=== PATIENT | female | born 1965 | race Caucasian/White ===

== ENCOUNTER 2017-12-07 13:35 | Emergency (ER) | payer BC, MEDICAID ==
[~2017-12-07] VITALS: Ht 162.6 cm; Wt 68.0 kg
[~2017-12-07 13:35] MED LIST: GABA-534 PO; MELA5TAB PO; [UNRECOGNIZED DRUG - REMARK]
[2017-12-07 14:39] LABS: *BILIRUBIN,URIN NEGATIVE (NEGATIVE); *BLOOD, URINE NEGATIVE (NEGATIVE); *COLOR,URINE YELLOW (YELLOW); *KETONES,URINE NEGATIVE (NEGATIVE); *PROTEIN,URINE NEGATIVE (NEGATIVE); *UROBILINOGEN,URINE 0.2 E.U./dl (NORMAL); LEUKOCYTE ESTERASE ,URINE NEGATIVE (NEGATIVE); NITRITE, URINE NEGATIVE (NEGATIVE); UGLUCOSE NEGATIVE (NEGATIVE)
[2017-12-07 14:40] LABS: *URINE HCG, QUAL NEGATIVE (NEGATIVE)
[2017-12-07 14:49] LABS: BASOPHILS % (AUTO) 0.2 % (0.0-2.0); EOSINOPHILS % (AUTO) 0.4 % (0.0-7.0); HEMATOCRIT 40.3 % (31.2-41.9); HEMOGLOBIN 13.7 g/dL (10.9-14.3); LYMPHOCYTES # (AUTO) 2.5 K/uL (20.0-40.0); LYMPHOCYTES % (AUTO) 32.1 % (20.5-51.5); MEAN CORPUSCULAR HEMOGLOBIN 32.2 uug (24.7-32.8); MEAN CORPUSCULAR HGB CONC 34 g/dL (32.3-35.6); MEAN CORPUSCULAR VOLUME 95.1 fL (75.5-95.3); MONOCYTES # (AUTO) 0.4 K/uL (2.0-10.0); MONOCYTES % (AUTO) 5.6 % (0.0-11.0); NEUTROPHILS # (AUTO) 4.7 K/uL (1.8-8.9); NEUTROPHILS % (AUTO) 61.7 % (38.5-71.5); PLATELET COUNT (AUTO) 192 K/uL (179-408); RED BLOOD CELL COUNT(AUTO) 4.24 MIL/uL (3.63-4.92); WHITE BLOOD COUNT (AUTO) 7.7 K/uL (3.8-11.8)
[2017-12-07 14:51] LABS: *AMPHETAMINE, URINE NEGATIVE (NEGATIVE); *BARBITURATE, URINE NEGATIVE (NEGATIVE); *CANNABINOID, URINE POSITIVE (NEGATIVE); *COCCAINE, URINE NEGATIVE (NEGATIVE); *OPIATE, URINE NEGATIVE (NEGATIVE); *PHENCYCLIDINE SCREEN,URINE NEGATIVE (NEGATIVE)
[2017-12-07 14:51] LABS: CARBON DIOXIDE 28 mmol/L (21-32); CHLORIDE 107 mmol/L (98-107); CREATININE 1.2 mg/dL (0.6-1.3); GLUCOSE 85 mg/dL (74-106); POTASSIUM 4.5 mmol/L (3.5-5.1); UREA NITROGEN, BLOOD 14 mg/dL (7-18)
[2017-12-07 14:57] LABS: *CLARITY,URINE HAZY (CLEAR)
[2017-12-07 14:59] LABS: WBC,URINE 0-3 /HPF (0-3)
[2017-12-07 15:00] LABS: ETHANOL < 3 MG/DL (0-0)
[2017-12-07 15:00] LABS: BACTERIA,URINE FEW /HPF (NONE SEEN); MUCUS,URINE MODERATE /LPF (0-FEW); SQUAMOUS EPITHELIAL CELL,UR MODERATE /HPF (NONE SEEN)
--- NOTE | 2017-12-07 15:00 | NUR ---
PT SAYS FEELS FINE AND WANTS TO GO HOME
[2017-12-07 15:05] LABS: ACETAMINOPHEN < 2.0 ug/mL (10-30); ALANINE AMINOTRANSFERASE 27 U/L (14-59); ALKALINE PHOSPHATASE 66 U/L (50-136); ASPARTATE AMINOTRANSFERASE 28 U/L (15-37); BILIRUBIN,DIRECT 0.1 mg/dL (0.0-0.2); BILIRUBIN,TOTAL 0.3 mg/dL (0.2-1.0)
--- NOTE | 2017-12-07 15:18 | NUR ---
Patient discharged to home in stable conditon. Written and verbal after care instructions given. Patient verbalizes understanding of instructions.PT WALKS IN SETADY GAIT. RA SAT 98%.
[2017-12-07 15:21] LABS: THYROID STIMULATING HORMONE 1.432 mIU/mL (0.358-3.740)
[2017-12-07 15:24] VITALS: BP 121/66
== END 2017-12-07 15:26 | disposition home or self-care (01) ==
LOC: ER 13:35
DX: R55 Syncope and collapse (principal); F19.90 Other psychoactive substance use, unspecified, uncomplicated; F19.10 Other psychoactive substance abuse, uncomplicated; Z88.0 Allergy status to penicillin; E11.9 Type 2 diabetes mellitus without complications; E78.00 Pure hypercholesterolemia, unspecified; Z79.899 Other long term (current) drug therapy
CPT/HCPCS: 36415; 70450; 71045; 80048; 80076; 80307; 81001; 82140; 83605; 84443; 84484; 84703; 85025; 85730; 87040 ×2; 87086; 93005; 99285; A4663; G0480 ×2; G0481; 70030-TC

== ENCOUNTER 2018-03-23 13:54 | Emergency (ER) | payer BC, MEDICAID ==
[~2018-03-23] VITALS: Ht 162.6 cm; Wt 74.8 kg
--- NOTE | 2018-03-23 14:54 | NUR ---
Pt was triaged and placed in ER lobby due to ED saturation. Per ER admitting pt stated she did not want to wait any longer and will return if her condition gets worse.
== END 2018-03-23 14:57 | disposition left against medical advice (07) ==
LOC: ER 13:56
DX: Z53.21 Procedure and treatment not carried out due to patient leaving prior to being seen by health care provider (principal)
CPT/HCPCS: A4663

== ENCOUNTER 2018-03-24 08:59 | Emergency (ER) | payer BC, MEDICAID ==
[~2018-03-24] VITALS: Ht 162.6 cm; Wt 74.8 kg
--- NOTE | 2018-03-24 10:30 | NUR ---
Patient discharged to home in stable conditon. Written and verbal after care instructions given. Patient verbalizes understanding of instructions.PT WALKS IN STEADY GAIT.
== END 2018-03-24 10:30 | disposition home or self-care (01) ==
LOC: ER 08:59
DX: S16.1XXA Strain of muscle, fascia and tendon at neck level, initial encounter (principal); S39.012A Strain of muscle, fascia and tendon of lower back, initial encounter; Z88.0 Allergy status to penicillin; Z79.899 Other long term (current) drug therapy; V43.62XA Car passenger injured in collision with other type car in traffic accident, initial encounter; Y93.89 Activity, other specified; Y92.410 Unspecified street and highway as the place of occurrence of the external cause; Y99.8 Other external cause status
CPT/HCPCS: 72125; 72131; 73130; 99284; A4663

== ENCOUNTER 2020-04-28 16:21 | Emergency (ER) | payer BC, MEDICAID ==
[~2020-04-28] VITALS: Ht 162.6 cm; Wt 77.1 kg
--- NOTE | 2020-04-28 17:15 | NUR ---
Patient discharged to home in stable condition. Written and verbal after care instructions given. Patient verbalizes understanding of instructions. Stressed follow up or return to ER for worsening s/s.pt walks in steady gait.
[2020-04-28 17:16] VITALS: BP 133/89
== END 2020-04-28 17:16 | disposition home or self-care (01) ==
LOC: ER 16:22
DX: I10 Essential (primary) hypertension (principal); E07.9 Disorder of thyroid, unspecified; R51 Headache
CPT/HCPCS: A4663